=== PATIENT | male | born 1975 | race Caucasian/White ===

== ENCOUNTER 2021-03-26 19:56 | Emergency (ER) | payer SELFPAY ==
[~2021-03-26] VITALS: Ht 185.5 cm; Wt 97.5 kg
[2021-03-26 20:14] VITALS: BP 128/76
[2021-03-26] MEDS ORDERED: KETOROLAC 60 MG/2 ML VIAL IM ONE (20:30)
[2021-03-26] MEDS ORDERED: ORPHENADRINE 60 MG/2 ML (NORFLEX) AMP (ED ONLY) IM ONE (20:30)
--- NOTE | 2021-03-26 20:37 | ED Upper Extremity ---
General Chief Complaint: Upper Extremity Stated Complaint: R SHOULDER PAIN Nursing Triage Note: PT AMBULATE TO TRIAGE WITH C/O RIGHT SHOULDER PAIN. PT STATES HE WAS IN THE SWIMMING POOL AT THE HOTEL AND THREW A BALL AND BELIEVES HE POPPED HIS SHOULDER OF THE SOCKET. PT REPORTS PREVIOUS INJURIES TO SHOULDERS FROM RIDING BULLS. PT STATES THAT TRIED PULLING ON HIS ARM SEVERAL TIMES IN AN ATTEMPT TO PUT SHOULDER BACK IN TO PLACE. Source: patient Exam Limitations: no limitations History of Present Illness Date Seen by Provider: Mar 26, 2021 Time Seen by Provider: 20:33 Initial Comments To ER with right shoulder pain after throwing a ball in the pool at the hotel here in [place]. This occurred just prior to arrival. Onset: just prior to arrival Severity: moderate Pain/Injury Location: right shoulder Method of Injury: unknown Modifying Factors: Worse With Movement Allergies and Home Medications Allergies Coded Allergies: amoxicillin (Verified Allergy, Unknown, 03/26/21) naproxen (Verified Allergy, Unknown, 03/26/21) tramadol (Verified Allergy, Unknown, 03/26/21) Patient Home Medication List Home Medication List Reviewed: Yes Review of Systems Constitutional: see HPI EENTM: see HPI Respiratory: no symptoms reported Cardiovascular: no symptoms reported Genitourinary: no symptoms reported Musculoskeletal: see HPI Skin: no symptoms reported Psychiatric/Neurological: No Symptoms Reported Past [id number] Hx Patient Social History Tobacco Use?: No Substance use?: No Alcohol Use?: No Physical Exam Vital Signs Vital Signs - First Documented 03/26/21 20:14 Temp 36.8 Pulse 92 Resp 19 B/P (MAP) 128/76 (93) O2 Delivery Room Air Capillary Refill : Less Than 3 Seconds Height, Weight, BMI Height: '" Weight: lbs. oz. kg; 28.00 BMI Method: General Appearance: WD/WN, mild distress (Related to pain, holds his right arm against him) Respiratory: no respiratory distress, no accessory muscle use Elbow/Forearm: normal inspection, non-tender, Right Hand: normal inspection, non-tender Neurologic/Tendon: normal sensation, normal motor functions Neurologic/Psychiatric: alert, normal mood/affect, oriented x 3 Skin: normal color, warm/dry Progress/Results/Core Measures Results/Orders My Orders Orders - ANAY VERDUGO APRN Shoulder, Right, 3 Views (03/26/21 20:17) Ketorolac Injection (Toradol Injection) (03/26/21 20:30) Orphenadrine Inj (Ed Only) (Norflex Inje (03/26/21 20:30) Medications Given in ED Current Medications Medications Dose Ordered Sig/Shavon Route Start Time Stop Time Status Last Admin Dose Admin Ketorolac Tromethamine 60 mg ONCE ONCE IM 03/26/21 20:30 03/26/21 20:31 DC 03/26/21 20:32 60 MG Orphenadrine Citrate 60 mg ONCE ONCE IM 03/26/21 20:30 03/26/21 20:31 DC 03/26/21 20:32 60 MG Vital Signs/I&O 03/26/21 20:14 Temp 36.8 Pulse 92 Resp 19 B/P (MAP) 128/76 (93) O2 Delivery Room Air Blood Pressure Mean: 93 Departure Communication (Admissions) K tracks score is 550. She has a prescription for hydrocodone on March 08 from a laceration to the dorsal right elbow that he was sent to [facility] for. He also had a prescription for oxycodone 7.5 that was written in [facility] which was the initial date of the right elbow injury. There is a very old scar with no erythema or heaping edges to suggest a subacute injury. He also has prescriptions twice in January that were filled in [place] for opiates. Impression Primary Impression: Internal derangement of right shoulder Disposition: HOME, SELF-CARE Condition: Stable (ERASED) Departure-Patient Inst. Decision time for Depature: 20:35 Referrals: MARINA COSME MD, MICHAEL P MD Patient Instructions: How to Use a Shoulder Sling Add. Discharge Instructions: 1. Use the sling, ibuprofen and muscle relaxers as directed. Follow-up with orthopedics of your choosing. The local orthopedists have been listed. All discharge instructions reviewed with patient and/or family. Voiced understanding. Scripts Ibuprofen (Ibuprofen) 800 Mg Tablet 800 MG PO Q8H PRN for PAIN, #30 TAB 0 Refills Prov: ANAY VERDUGO APRN 03/26/21 Methocarbamol (Methocarbamol) 750 Mg Tablet 750 MG PO Q6-8HR for Back Pain, #14 TAB Prov: ANAY VERDUGO APRN 03/26/21 ANAY VERDUGO APRN Mar 26, 2021 20:37
[2021-03-26] MEDS ORDERED: METH-732 PO (20:40)
[2021-03-26] MEDS ORDERED: IBUP-1780 PO (20:40)
--- NOTE | 2021-03-26 21:22 | Diagnostic Imaging Report ---
INDICATION: Right shoulder injury. Pain. EXAMINATION: Right shoulder from 03/26/2021. 3 views of the shoulder. FINDINGS: There is no evidence for an acute fracture or dislocation. The joint spaces are well maintained. There is no significant soft tissue swelling. IMPRESSION: No acute process. Dictated by: Dictated on workstation # [id number]
== END 2021-03-26 20:50 | disposition home or self-care (01) ==
LOC: ER 20:01
DX: M24.9 Joint derangement, unspecified (principal)
CPT/HCPCS: 73030; 99283; A4565